=== PATIENT | male | born 1945 | race Caucasian/White ===

== ENCOUNTER 2018-09-12 08:28 | Outpatient (CLI) | payer MEDICARE ==
--- NOTE | 2018-09-12 10:13 | ULT ---
ULTRASOUND ABDOMINAL AORTA: HISTORY: Seen for abdominal aortic aneurysm. FINDINGS: The largest AP diameter of the abdominal aorta is 2.1 cm. IMPRESSION: No evidence of abdominal aortic aneurysm. POS: SHEILA
== END 2018-09-12 08:29 | disposition home or self-care (01) ==
LOC: BICULT 08:28
PROVIDERS: ATTEND Family Medicine
DX: Z13.6 Encounter for screening for cardiovascular disorders (principal)
CPT/HCPCS: 76775

== ENCOUNTER 2019-04-19 08:45 | Outpatient (CLI) | payer MEDICARE ==
--- NOTE | 2019-04-19 11:51 | CT ---
CT ABDOMEN AND PELVIS WITH AND WITHOUT IV CONTRAST: HISTORY: A 74-year-old male with gross hematuria and prostate cancer status post prostate resection. COMPARISON: None. FINDINGS: There are dependent changes in the lung bases. The liver, spleen, pancreas and adrenal glands are nor mal. No calcified gallstones are seen. No calculi are noted in the kidneys, ureters or urinary bladder. No hydroureteronephrosis is seen on either side. Post contrast images demonstrate a 15 mm exophytic cyst arising from the posteromedial a spect of the left inferior kidney. There is normal contrast excretion into the pelvicalyceal systems and ureters on both sides. There is a 15 mm filling defect, consistent with mass, at the posterior as pect of the urinary bladder, close to the right UVJ. No free air, free fluid or lymphadenopathy is seen in the abdomen or pelvis. There are vascular calci fications without evidence of aneurysmal dilatation of the abdominal aorta. Degenerative changes are present in the spine. No osteolytic or osteoblastic lesions are noted. IMPRESSION: 1. Findings are highly suspicious for bladder malignancy. Evaluation with cystoscopy is recommended. 2. Left renal cyst. CODE T POS: PAYAL
== END 2019-04-19 08:46 | disposition home or self-care (01) ==
LOC: BICCT 08:45
PROVIDERS: ATTEND Physician Assistant
DX: R31.0 Gross hematuria (principal); Z85.46 Personal history of malignant neoplasm of prostate; Z98.890 Other specified postprocedural states; N28.1 Cyst of kidney, acquired
CPT/HCPCS: 74178; 82565

== ENCOUNTER 2019-04-28 05:00 | Emergency (ER) | payer MEDICARE ==
[2019-04-28 05:49] LABS: #Basophils 0.1 thou/uL (0.0-0.2); #Eosinphils 0.5 thou/uL (0.0-0.7); #Lymphocytes 1.4 thou/uL (1.20-3.40); #Monocytes 0.3 thou/uL (0.11-0.59); #Neutrophils 3.7 thou/uL (1.40-6.50); %Basophils 1.1 % (0.0-1.0); %Lymphocytes 23.1 % (21.0-51.0); %Monocytes 4.8 % (0.0-10.0); Hemoglobin 13.1 g/dL (14.0-18.0); Mean Corpuscular HGB CONC 33.7 g/dL (32.0-36.0); Mean Corpuscular Hemoglobin 29.3 pg (27.0-31.0); Mean Corpuscular Volume 86.9 fL (78.0-98.0); Mean Platelet Volume 7.5 fL (7.4-10.4); Platelet Count 204 thou/uL (130-400); RBC Distribution Width 12.2 % (11.5-14.5); Red Blood Cell (RBC) Count 4.49 mill/uL (4.70-6.10); White Blood Cell (WBC) Count 5.9 thou/uL (4.8-10.8)
[2019-04-28 05:58] LABS: PTT 28.2 SEC (22.9-36.1); Prothrombin Time 12.9 SEC (12.0-14.7)
[2019-04-28 06:22] LABS: Bacteria/HPF None Seen HPF (None Seen); Bilirubin Negative (Negative); Blood, Urine 3+ (Negative); Clarity Extra Turbid (Clear); Glucose, Urine (Dipstick) Normal (Negative); Leukocyte 75 Leu/uL (Negative); Nitrite Negative (Negative); Protein, Urine (Dipstick) 100 mg/dL (Neg-Trace); RBC/HPF Greater than 50 HPF (0-3); Squamous Epithelial None Seen HPF (0-3); Urobilinogen Normal mg/dL (Less than 2)
== END 2019-04-28 06:35 | disposition home or self-care (01) ==
LOC: ERS 05:00
DX: C67.9 Malignant neoplasm of bladder, unspecified (principal); R31.9 Hematuria, unspecified
CPT/HCPCS: 36415; 81003; 81015; 85025; 85610; 85730; 99283

== ENCOUNTER 2019-05-03 15:50 | Outpatient (CLI) | payer MEDICARE ==
[2019-05-03 16:48] LABS: Hemoglobin 13.8 g/dL (14.0-18.0); Mean Corpuscular Hemoglobin 28.6 pg (27.0-31.0); Mean Corpuscular Volume 86.6 fL (78.0-98.0); Mean Platelet Volume 8.2 fL (7.4-10.4); Platelet Count 236 thou/uL (130-400); RBC Distribution Width 12.3 % (11.5-14.5); Red Blood Cell (RBC) Count 4.82 mill/uL (4.70-6.10); White Blood Cell (WBC) Count 7.7 thou/uL (4.8-10.8)
[2019-05-03 17:06] LABS: Bacteria/HPF None Seen HPF (None Seen); Bilirubin Negative (Negative); Blood, Urine 1+ (Negative); Clarity Clear (Clear); Glucose, Urine (Dipstick) Normal (Negative); Leukocyte Negative Leu/uL (Negative); Nitrite Negative (Negative); Protein, Urine (Dipstick) Negative (Neg-Trace); Squamous Epithelial 0-3 HPF (0-3); Urobilinogen Normal mg/dL (Less than 2); WBC/HPF 0-3 HPF (0-3)
[2019-05-03 17:13] LABS: Anion Gap 10 mmol/L (10-20); BUN (Urea Nitrogen) 16 mg/dL (8.4-25.7); Calc. Creatinine Clearance 0 mL/min (70-130); Calcium 9.1 mg/dL (7.8-10.44); Carbon Dioxide 29 mmol/L (23-31); Chloride 101 mmol/L (98-107); Estimated GFR-MDRD 45; Glucose 95 mg/dL (83-110); Potassium 4.2 mmol/L (3.5-5.1); Sodium 136 mmol/L (136-145)
--- NOTE | 2019-05-04 16:28 | EKG ---
Test Reason : Blood Pressure : / mmHG Vent. Rate : 078 BPM Atrial Rate : 078 BPM P-R Int : 158 ms QRS Dur : 098 ms QT Int : 366 ms P-R-T Axes : 059 -51 044 degrees QTc Int : 417 ms Normal sinus rhythm Left axis deviation No previous ECGs available Confirmed by DR. Kirill RAYMOND ([id number]) on 05/04/2019 4:28:17 PM Referred By: FOX Confirmed By:DR. Kirill RAYMOND
[2019-05-05 08:10] LABS: % Free PSA Greater than 10.0 % (.); Total PSA Less than 0.1 ng/mL (0.0-4.0)
== END 2019-05-03 15:51 | disposition home or self-care (01) ==
LOC: LABBT 15:50
PROVIDERS: ATTEND Urology
DX: Z01.818 Encounter for other preprocedural examination (principal); D49.4 Neoplasm of unspecified behavior of bladder
CPT/HCPCS: 80048; 81001; 84153; 84154; 85027; 87086; 93005; 93010

== ENCOUNTER 2019-05-08 05:30 | Day surgery (SDC) | payer MEDICARE ==
[2019-05-03 16:13] VITALS: BMI 32.6
[2019-05-08] MEDS ORDERED: Levofloxacin 500 mg/D5W 100 ml Premix Bag ONE (06:21)
[2019-05-08] MEDS ORDERED: mitoMYcin 40 MG in Sterile Water 20 ML IV SCH (07:00)
[2019-05-08] MEDS ORDERED: Iothalamate Meglumine 60% 50 ML VIAL FS ONE (07:20)
[2019-05-08] MEDS ORDERED: Fentanyl 100 MCG/2 ML VIAL ONE (07:20)
--- NOTE | 2019-05-08 08:07 | RAD ---
Retrograde ureterogram intraoperative fluoroscopy HISTORY: Urinary bladder cancer. FINDINGS: Intraoperative fluoroscopy was provided for retrograde study as performed by Dr. Garcia. Spot fluoroscopic images shows contrast opacification of bilateral nondilated ureters and renal collecting systems. No filling defects are apparent. The distal ureters and urinary bladder are not i ncluded on the images.
[2019-05-08] MEDS ORDERED: Ondansetron PF 4 MG/2 ML Vial ONE (08:27)
[2019-05-08] MEDS ORDERED: Phenazopyridine HCl 97.5 MG TABLET ONE (09:37)
[2019-05-08] MEDS ORDERED: Ketorolac Tromethamine 30 MG/ML VIAL ONE (09:37)
[2019-05-08] MEDS ORDERED: Oxybutynin 5 MG TAB ONE (09:37)
[2019-05-08] MEDS ORDERED: Lidocaine 1% PF 5 ML VIAL ONE (10:12)
[2019-05-08] MEDS ORDERED: ePHEDrine/0.9% NaCl/PF SYRINGE 50 mg/10 ml ONE (10:12)
[2019-05-08] MEDS ORDERED: PROPOFOL 200 MG/20 ML VIAL ONE (10:12)
[2019-05-08] MEDS ORDERED: Glycopyrrolate 0.2 MG/ML 5 ML SYRINGE ONE (10:12)
--- NOTE | 2019-05-08 13:49 | OP ---
DATE OF PROCEDURE: 05/08/2019 PREOPERATIVE DIAGNOSIS: Medium bladder tumor. POSTOPERATIVE DIAGNOSIS: Medium bladder tumor. PROCEDURES PERFORMED: 1. Transurethral resection of medium bladder tumor of the right trigone. 2. Bilateral retrograde pyelogram. 3. Instillation of mitomycin. ANESTHESIA: General. COMPLICATIONS: None. BLOOD LOSS: Minimal. SPECIMEN: Right trigone tumor. DESCRIPTION OF PROCEDURE: After informed consent, the patient was taken to the operating room, transferred to the table under his own power. Anesthesia was established. A time-out was performed, showing the correct patient, site, and procedure. He was prepped and draped in the lithotomy position. The 22-English cystoscope was advanced through the urethra into the bladder. The bladder was systematically examined with both 30 and 70-degree lenses. No other mucosal abnormalities or tumors were noted beyond the 3 to 4 cm tumor arising from the right trigone overlying the right ureteral orifice. I was able to identify the ureteral orifice at the base of the tumor, which appeared to be uninvolved. A Pollack catheter was utilized to perform bilateral retrograde pyelograms, showing good filling of both ureters without hydronephrosis or filling defects. I then switched to the rigid resectoscope, and after dilating the urethral meatus to 30-English with Ro[place] sounds, passed the 26-English resectoscope into the bladder, and using the resection loop, I removed the tumor from the right trigone. There did appear to be tumor right at the opening of the ureteral orifice, and so, this was resected using cut current only. I then removed all specimen and passed this off. The resection bed was carefully cauterized, taking care to avoid the UO. The bladder was then drained and reexamined, noting no bleeding. The scope was withdrawn and a 20-English Nolan catheter placed with 10 mL instilled in the balloon. 40 mg mitomycin in 20 mL was instilled through the catheter and will be left to dwell for 1 hour. At this point, the patient was awoken from anesthesia, transferred back to his hospital bed, and taken to PACU in stable condition, where he will discharge home upon recovery. Job ID: [id number]
== END 2019-05-08 10:05 | disposition home or self-care (01) ==
LOC: SDC 05:30
PROVIDERS: ATTEND Urology
PROC: 0TBB8ZX Excision of Bladder, Via Natural or Artificial Opening Endoscopic, Diagnostic (ICD-10-PCS; principal; 2019-05-08)
DX: C67.0 Malignant neoplasm of trigone of bladder (principal); Z85.46 Personal history of malignant neoplasm of prostate; Z79.899 Other long term (current) drug therapy
CPT/HCPCS: 52235; 74420; J9280; 88305; C1758; J1885; J1956; J2001; J2405; J2704; J3010

== ENCOUNTER 2020-03-10 15:07 | Outpatient (CLI) | payer MEDICARE ==
--- NOTE | 2020-03-10 15:25 | RAD ---
Exam:3 views left shoulder HISTORY: Pain. COMPARISON: None FINDINGS: Moderate degenerative change involving the acromioclavicular joint space Glenohumeral joint space is preserved. No fracture or dislocation. IMPRESSION: 1. Moderate degenerative change of the acromioclavicular joint space.
== END 2020-03-10 15:08 | disposition home or self-care (01) ==
LOC: BICRAD 15:07
PROVIDERS: ATTEND Physician Assistant
DX: M25.512 Pain in left shoulder (principal); M19.012 Primary osteoarthritis, left shoulder